=== PATIENT | male | born 1995 | race African-American/Black ===

== ENCOUNTER 2016-08-09 12:32 | Emergency (ER) | payer SELFPAY ==
[~2016-08-09] VITALS: Ht 175.3 cm; Wt 78.0 kg
[~2016-08-09 12:32] MED LIST: IBUP800T23 PO
[2016-08-09 12:35] VITALS: BP 117/83; PULSE 54; RESP 24; TEMP 97.9; O2SAT 99
[2016-08-09] MEDS ORDERED: ONDANSETRON HCL 4 MG/2 ML VIAL ONE (12:48)
[2016-08-09 13:00] VITALS: BP 136/61; PULSE 54; RESP 20; TEMP 98.9; O2SAT 97
[2016-08-09] MEDS ORDERED: SODIUM CHLOR 0.9% 1000 ML INJ 1,000 ML IV ONE (13:00)
[2016-08-09] MEDS ORDERED: ONDANSETRON HCL 4 MG/2 ML VIAL IV PUSH ONE ×2 (13:00→13:45)
[2016-08-09 13:10] LABS: AUTOMATED NEUTROPHIL # 1.7 TH/MM3 (1.8-7.7); BASOPHIL % 1.3 % (0.0-2.0); EOSINOPHIL % 1.6 % (0.0-4.0); HEMATOCRIT 43.3 % (39.0-51.0); HEMO FLAGS DIFF FINAL; LYMPH % 30.2 % (9.0-44.0); LYMPHOCYTE # 0.9 TH/MM3 (1.0-4.8); MEAN CELL VOLUME 85.6 FL (80.0-100.0); MEAN CORPUSCULAR HGB CONC 33.9 % (32.0-36.0); MONO % 9.6 % (0.0-8.0); NEUT % 57.3 % (16.0-70.0); PLATELET COUNT 146 TH/MM3 (150-450); RED BLOOD COUNT 5.06 MIL/MM3 (4.50-5.90); WHITE BLOOD COUNT 2.9 TH/MM3 (4.0-11.0)
[2016-08-09 13:25] LABS: ANION GAP 10 MEQ/L (5-15); AST (GOT) 17 U/L (15-37); BICARBONATE 25.2 MEQ/L (21.0-32.0); BLOOD UREA NITROGEN 6 MG/DL (7-18); CHLORIDE 105 MEQ/L (98-107); GLOMERULAR FILTRATION RATE 119 ML/MIN (>89); POTASSIUM 4.3 MEQ/L (3.5-5.1); SODIUM (NA) 140 MEQ/L (136-145)
[2016-08-09 13:28] LABS: ALKALINE PHOSPHATASE 73 U/L (45-117); ALT (GPT) 27 U/L (12-78); TOTAL BILIRUBIN ADULT 1.1 MG/DL (0.2-1.0)
[2016-08-09] MEDS ORDERED: DICYCLOMINE HCL 10 MG CAP PO ONE (13:45)
[2016-08-09 15:14] VITALS: BP 133/74; PULSE 65; RESP 16; O2SAT 99
--- NOTE | 2016-08-09 15:25 | PD ---
HPI Chief Complaint: GI Complaint Time Seen by Provider: 12:46 Travel History International Travel<30 days: No Contact w/Intl Traveler<30days: No Traveled to known affect area: No History of Present Illness HPI Patient is a 21-year-old male comes in complaining of nausea, vomiting, diarrhea. He says he was drinking tequila last night, but did not really think he got drunk. The last time he drank was at 1:30 this morning. He says he woke up vomiting. He thinks he may be hung over. He denies any abdominal pain. He denies fever or chills. He denies seeing any blood in his vomit or stool. PFS Past Medical History Medical History: Denies Significant Hx Cardiovascular Problems: Yes (htn) Past Surgical History Surgical History: No Previous Surgery Social History Alcohol Use: Yes (socially) Tobacco Use: No Substance Use: Yes (marijuana) Allergies-Medications (Allergen,Severity, Reaction): Coded Allergies: No Known Allergies (Unverified , 08/09/16) Reported Meds & Prescriptions Reported Meds & Active Scripts Active No Active Prescriptions or Reported Medications Review of Systems Except as stated in HPI: all other systems reviewed are Neg General / Constitutional: No: Fever, Chills HENT: No: Headaches, Lightheadedness Cardiovascular: No: Chest Pain or Discomfort Respiratory: No: Shortness of Breath Gastrointestinal: Positive: Nausea, Vomiting, Diarrhea, No: Abdominal Pain Genitourinary: No: Dysuria Skin: No Rash, No Change in Pigmentation Neurologic: No: Weakness, Dizziness Physical Exam Narrative GENERAL: Awake and alert, in no acute distress. SKIN: Warm and dry. HEAD: Atraumatic. Normocephalic. EYES: Pupils equal and round. No scleral icterus. ENT: No nasal bleeding or discharge. Mucous membranes pink and moist. NECK: Trachea midline. No JVD. CARDIOVASCULAR: Regular rate and rhythm. No murmur appreciated. RESPIRATORY: No accessory muscle use. Clear to auscultation. Breath sounds equal bilaterally. GASTROINTESTINAL: Abdomen soft, non-tender, nondistended. MUSCULOSKELETAL: No obvious deformities. No clubbing. No cyanosis. No edema. NEUROLOGICAL: Awake and alert. No obvious cranial nerve deficits. Motor grossly within normal limits. Normal speech. PSYCHIATRIC: Appropriate mood and affect; insight and judgment normal. Data Data Last Documented VS Vital Signs Date Time Temp Pulse Resp B/P Pulse Ox O2 Delivery O2 Flow Rate FiO2 08/09/16 15:14 65 16 133/74 99 Room Air 08/09/16 12:35 97.9 Orders Ondansetron Inj (Zofran Inj) (08/09/16 12:48) Complete Blood Count With Diff (08/09/16 12:53) Comprehensive Metabolic Panel (08/09/16 12:53) Sodium Chlor 0.9% 1000 Ml Inj (Ns 1000 M (08/09/16 13:00) Ondansetron Inj (Zofran Inj) (08/09/16 13:00) Ondansetron Inj (Zofran Inj) (08/09/16 13:45) Dicyclomine (Bentyl) (08/09/16 13:45) Labs Laboratory Tests Test 08/09/16 12:59 White Blood Count 2.9 TH/MM3 Red Blood Count 5.06 MIL/MM3 Hemoglobin 14.7 GM/DL Hematocrit 43.3 % Mean Corpuscular Volume 85.6 FL Mean Corpuscular Hemoglobin 29.0 PG Mean Corpuscular Hemoglobin 33.9 % Concent Red Cell Distribution Width 14.0 % Platelet Count 146 TH/MM3 Mean Platelet Volume 9.2 FL Neutrophils (%) (Auto) 57.3 % Lymphocytes (%) (Auto) 30.2 % Monocytes (%) (Auto) 9.6 % Eosinophils (%) (Auto) 1.6 % Basophils (%) (Auto) 1.3 % Neutrophils # (Auto) 1.7 TH/MM3 Lymphocytes # (Auto) 0.9 TH/MM3 Monocytes # (Auto) 0.3 TH/MM3 Eosinophils # (Auto) 0.0 TH/MM3 Basophils # (Auto) 0.0 TH/MM3 CBC Comment DIFF FINAL Differential Comment Sodium Level 140 MEQ/L Potassium Level 4.3 MEQ/L Chloride Level 105 MEQ/L Carbon Dioxide Level 25.2 MEQ/L Anion Gap 10 MEQ/L Blood Urea Nitrogen 6 MG/DL Creatinine 0.96 MG/DL Estimat Glomerular Filtration 119 ML/MIN Rate Random Glucose 99 MG/DL Calcium Level 9.1 MG/DL Total Bilirubin 1.1 MG/DL Aspartate Amino Transf 17 U/L (AST/SGOT) Alanine Aminotransferase 27 U/L (ALT/SGPT) Alkaline Phosphatase 73 U/L Total Protein 8.2 GM/DL Albumin 4.2 GM/DL MDM Medical Decision Making Medical Screen Exam Complete: Yes Emergency Medical Condition: Yes Differential Diagnosis Gastroenteritis versus dehydration versus gastritis versus hangover Narrative Course Patient is a 21-year-old male comes in complaining of nausea, vomiting, diarrhea. Exam shows no abdominal tenderness. IV established, labs sent. Labs show no acute abnormalities. Patient given IV fluids, Zofran. Planing of crampy feeling in her abdomen. Given a second dose of Zofran as well as Bentyl. He reports feeling much better after this. He is able to drink water without vomiting. He is requesting to go home. Patient advised to refrain from alcohol use. Advised to drink plenty of fluids. Advised to eat a bland diet if he is feeling hungry. Advised follow-up with his doctor. Advised to return to the ED as needed for any worsening symptoms. Diagnosis Primary Impression: Nausea & vomiting Qualified Code: R11.2 - Non-intractable vomiting with nausea, unspecified vomiting type Patient Instructions: Acute Nausea and Vomiting (ED), General Instructions Additional Instructions: Drink plenty of fluids. If you are hungry, eat a bland diet for the next day. Avoid alcohol use. Return to the ED as needed for any worsening symptoms. Follow up with your doctor. Scripts No Active Prescriptions or Reported Meds Disposition: 01 DISCHARGE HOME Condition: Stable Marta Horton MD Aug 09, 2016 15:25
== END 2016-08-09 17:03 | disposition home or self-care (01) ==
LOC: NEPA 12:32
DX: R11.2 Nausea with vomiting, unspecified (principal); R19.7 Diarrhea, unspecified; R10.9 Unspecified abdominal pain; I10 Essential (primary) hypertension
CPT/HCPCS: 80053; 85025; 96361; 96374; 96376; 99284; J2405; J7030

== ENCOUNTER 2016-11-24 00:41 | Emergency (ER) | payer SELFPAY ==
[~2016-11-24] VITALS: Ht 175.3 cm; Wt 78.0 kg
[2016-11-24 00:43] VITALS: BP 125/84; PULSE 55; RESP 16; TEMP 97.6; O2SAT 100
--- NOTE | 2016-11-24 02:23 | PD ---
HPI Chief Complaint: Complaint Time Seen by Provider: 02:07 Travel History International Travel<30 days: No Contact w/Intl Traveler<30days: No Traveled to known affect area: No History of Present Illness HPI This is a 21-year-old male presents with a finding of what feels like worms in the left testicle and he feels like he might be infected with parasites. Has no other complaints no dysuria no pain in the scrotum no abdominal pain no nausea or vomiting. He first noticed this a few days ago and has not changed since then. [facility] Past Medical History Asthma: Yes Cardiovascular Problems: Yes (htn) Diminished Hearing: No Immunizations Current: Yes Tetanus Vaccination: > 5 Years Influenza Vaccination: No Past Surgical History Surgical History: No Previous Surgery Social History Alcohol Use: Yes (socially) Tobacco Use: No Substance Use: Yes (marijuana) Allergies-Medications (Allergen,Severity, Reaction): Coded Allergies: No Known Allergies (Unverified , 11/24/16) Reported Meds & Prescriptions Reported Meds & Active Scripts Active No Active Prescriptions or Reported Medications Review of Systems Except as stated in HPI: all other systems reviewed are Neg Physical Exam Narrative GENERAL: Well-nourished, well-developed patient. SKIN: Focused skin assessment warm/dry. HEAD: Normocephalic. EYES: No scleral icterus. No injection or drainage. NECK: Supple, trachea midline. No JVD or lymphadenopathy. CARDIOVASCULAR: Regular rate and rhythm without murmurs, gallops, or rubs. RESPIRATORY: Breath sounds equal bilaterally. No accessory muscle use. GASTROINTESTINAL: Abdomen soft, non-tender, nondistended. GENITOURINARY: Patient has a varicocele which is nontender on the left side, testes normal and nontender without mass. Penis normal. No overlying erythema. MUSCULOSKELETAL: No cyanosis, or edema. BACK: Nontender without obvious deformity. No CVA tenderness. Data Data Last Documented VS Vital Signs Date Time Temp Pulse Resp B/P Pulse Ox O2 Delivery O2 Flow Rate FiO2 11/24/16 00:43 97.6 55 16 125/84 100 Room Air [facility] Medical Decision Making Medical Screen Exam Complete: Yes Emergency Medical Condition: Yes Differential Diagnosis Varicocele, hernia, testicular mass unlikely, testicular torsion highly unlikely. Narrative Course Patient roomed in emergency department, he appears well in no distress, he is uncomfortable could've varicocele of the left scrotum, he is stable for discharge. Need for follow-up with a primary care provider for a checkup. Diagnosis Primary Impression: Varicocele Referrals: [facility] Additional Instructions: [facility]up and [facility] for a general checkup. Scripts No Active Prescriptions or Reported Meds Disposition: 01 DISCHARGE HOME Condition: Stable Jerad Velasquez MD Nov 24, 2016 02:22
== END 2016-11-24 02:47 | disposition home or self-care (01) ==
LOC: NEPC 00:41
DX: I86.1 Scrotal varices (principal)
CPT/HCPCS: 99282

== ENCOUNTER 2017-03-07 08:31 | Emergency (ER) | payer SELFPAY ==
[~2017-03-07] VITALS: Ht 175.3 cm; Wt 80.0 kg
[2017-03-07 08:34] VITALS: BP 133/70; PULSE 70; RESP 24; O2SAT 100
[2017-03-07] MEDS ORDERED: SODIUM CHLOR 0.9% 1000 ML INJ 1,000 ML IV SCH (09:04)
[2017-03-07] MEDS ORDERED: ONDANSETRON HCL 4 MG/2 ML VIAL ONE (09:05)
[2017-03-07 09:09] VITALS: RESP 16; O2SAT 98
[2017-03-07] MEDS ORDERED: SODIUM CHLORIDE 0.9% FLUSH 10 ML FLUSH IV FLUSH PRN (09:15)
[2017-03-07] MEDS ORDERED: ONDANSETRON HCL 4 MG/2 ML VIAL IVP ONE (09:15)
[2017-03-07] MEDS ORDERED: SODIUM CHLOR 0.9% 1000 ML INJ 1,000 ML IV ONE (09:15)
--- NOTE | 2017-03-07 09:18 | PD ---
HPI Chief Complaint: GI Complaint Time Seen by Provider: 09:11 Travel History International Travel<30 days: No Contact w/Intl Traveler<30days: No Traveled to known affect area: No History of Present Illness HPI Patient is a 21-year-old male who presents to emergency room for evaluation of dehydration with nausea and vomiting. Patient reports that he drank heavily last night, reports that he woke this morning feeling nauseous and was vomiting. Patient denies any abdominal pain, reports that every time he drank water, he would throw up. Patient presents to emergency room with complete of dehydration. Patient with no abdominal pain at this time, patient denies any fevers or chills or trauma to the abdominal wall. Patient requests IV hydration at this time. PFS Past Medical History Asthma: Yes Cardiovascular Problems: Yes (htn) Diminished Hearing: No Immunizations Current: Yes Influenza Vaccination: Yes Past Surgical History Surgical History: No Previous Surgery Social History Alcohol Use: Yes (socially) Tobacco Use: No Substance Use: Yes (marijuana) Allergies-Medications (Allergen,Severity, Reaction): Coded Allergies: No Known Allergies (Unverified , 03/07/17) Reported Meds & Prescriptions Reported Meds & Active Scripts Active Zofran (Ondansetron HCl) 4 Mg Tab 4 Mg PO Q6HR PRN Review of Systems General / Constitutional: No: Fever Eyes: No: Visual changes HENT: No: Headaches Cardiovascular: No: Chest Pain or Discomfort Respiratory: No: Shortness of Breath Gastrointestinal: Positive: Nausea, Vomiting, No: Diarrhea, Abdominal Pain, Constipation Genitourinary: No: Dysuria Musculoskeletal: No: Pain Skin: No Rash Neurologic: No: Weakness Psychiatric: No: Depression Endocrine: No: Polydipsia Hematologic/Lymphatic: No: Easy Bruising Physical Exam Narrative GENERAL: NAD, nontoxic SKIN: Focused skin assessment warm/dry. HEAD: Atraumatic. Normocephalic. EYES: Pupils equal and round. No scleral icterus. No injection or drainage. ENT: No nasal bleeding or discharge. Mucous membranes pink and moist. NECK: Trachea midline. No JVD. CARDIOVASCULAR: Regular rate and rhythm. No murmur appreciated. RESPIRATORY: No accessory muscle use. Clear to auscultation. Breath sounds equal bilaterally. GASTROINTESTINAL: Abdomen soft, non-tender, nondistended. Hepatic and splenic margins not palpable. MUSCULOSKELETAL: No obvious deformities. No clubbing. No cyanosis. No edema. NEUROLOGICAL: Awake and alert. No obvious cranial nerve deficits. Motor grossly within normal limits. Normal speech. PSYCHIATRIC: Appropriate mood and affect; insight and judgment normal. Data Data Last Documented VS Vital Signs Date Time Temp Pulse Resp B/P (MAP) Pulse Ox O2 Delivery O2 Flow Rate FiO2 03/07/17 09:09 16 98 Room Air 03/07/17 08:34 70 Orders Orders Complete Blood Count With Diff (03/07/17 09:04) Comprehensive Metabolic Panel (03/07/17 09:04) Lipase (03/07/17 09:04) Urinalysis - C+S If Indicated (03/07/17 09:04) Iv Access Insert/Monitor (03/07/17 09:04) Ecg Monitoring (03/07/17 09:04) Oximetry (03/07/17 09:04) NPO (03/07/17 09:04) Ondansetron Inj (Zofran Inj) (03/07/17 09:15) Sodium Chlor 0.9% 1000 Ml Inj (Ns 1000 M (03/07/17 09:04) Sodium Chloride 0.9% Flush (Ns Flush) (03/07/17 09:15) Ondansetron Inj (Zofran Inj) (03/07/17 09:05) Sodium Chlor 0.9% 1000 Ml Inj (Ns 1000 M (03/07/17 09:15) Labs Laboratory Tests Test 03/07/17 09:05 White Blood Count 7.0 TH/MM3 Red Blood Count 4.83 MIL/MM3 Hemoglobin 14.2 GM/DL Hematocrit 42.1 % Mean Corpuscular Volume 87.3 FL Mean Corpuscular Hemoglobin 29.4 PG Mean Corpuscular Hemoglobin Concent 33.7 % Red Cell Distribution Width 13.8 % Platelet Count 145 TH/MM3 Mean Platelet Volume 9.0 FL Neutrophils (%) (Auto) 75.9 % Lymphocytes (%) (Auto) 16.7 % Monocytes (%) (Auto) 6.2 % Eosinophils (%) (Auto) 0.7 % Basophils (%) (Auto) 0.5 % Neutrophils # (Auto) 5.3 TH/MM3 Lymphocytes # (Auto) 1.2 TH/MM3 Monocytes # (Auto) 0.4 TH/MM3 Eosinophils # (Auto) 0.0 TH/MM3 Basophils # (Auto) 0.0 TH/MM3 CBC Comment DIFF FINAL Differential Comment Blood Urea Nitrogen 9 MG/DL Creatinine 1.05 MG/DL Random Glucose 100 MG/DL Total Protein 8.4 GM/DL Albumin 4.5 GM/DL Calcium Level 9.2 MG/DL Alkaline Phosphatase 75 U/L Aspartate Amino Transf (AST/SGOT) 17 U/L Alanine Aminotransferase (ALT/SGPT) 28 U/L Total Bilirubin 1.1 MG/DL Sodium Level 140 MEQ/L Potassium Level 4.0 MEQ/L Chloride Level 109 MEQ/L Carbon Dioxide Level 23.7 MEQ/L Anion Gap 7 MEQ/L Estimat Glomerular Filtration Rate 107 ML/MIN Lipase 64 U/L [facility] Medical Decision Making Medical Screen Exam Complete: Yes Emergency Medical Condition: Yes Interpretation(s) Vital Signs Date Time Temp Pulse Resp B/P (MAP) Pulse Ox O2 Delivery O2 Flow Rate FiO2 03/07/17 09:09 16 98 Room Air 03/07/17 09:01 20 03/07/17 08:34 70 24 133/70 (91) 100 Room Air Differential Diagnosis Differential includes a electrolyte abnormality, dehydration, alcohol abuse Narrative Course 21-year-old male who presents to emergency room with complaints of nausea and vomiting after a night of drinking last night. Patient reports that he drank heavily last night, reports that he woke up this morning feeling nauseous and began vomiting after he tried drinking water. Patient denies any abdominal pain at this time. Patient reports that he feels dehydrated and is in need of IVF. Patient is nontoxic appearing on exam, vital signs are stable. Abdomen is soft , nontender, nondistended, no peritoneal signs. Plan to obtain basic labs including LFTs, will administer IV fluids as well as antiemetics. Vital Signs Date Time Temp Pulse Resp B/P (MAP) Pulse Ox O2 Delivery O2 Flow Rate FiO2 03/07/17 09:09 16 98 Room Air 03/07/17 09:01 20 03/07/17 08:34 70 24 133/70 (91) 100 Room Air Laboratory Tests Test 03/07/17 09:05 White Blood Count 7.0 TH/MM3 (4.0-11.0) Red Blood Count 4.83 MIL/MM3 (4.50-5.90) Hemoglobin 14.2 GM/DL (13.0-17.0) Hematocrit 42.1 % (39.0-51.0) Mean Corpuscular Volume 87.3 FL (80.0-100.0) Mean Corpuscular Hemoglobin 29.4 PG (27.0-34.0) Mean Corpuscular Hemoglobin Concent 33.7 % (32.0-36.0) Red Cell Distribution Width 13.8 % (11.6-17.2) Platelet Count 145 TH/MM3 (150-450) Mean Platelet Volume 9.0 FL (7.0-11.0) Neutrophils (%) (Auto) 75.9 % (16.0-70.0) Lymphocytes (%) (Auto) 16.7 % (9.0-44.0) Monocytes (%) (Auto) 6.2 % (0.0-8.0) Eosinophils (%) (Auto) 0.7 % (0.0-4.0) Basophils (%) (Auto) 0.5 % (0.0-2.0) Neutrophils # (Auto) 5.3 TH/MM3 (1.8-7.7) Lymphocytes # (Auto) 1.2 TH/MM3 (1.0-4.8) Monocytes # (Auto) 0.4 TH/MM3 (0-0.9) Eosinophils # (Auto) 0.0 TH/MM3 (0-0.4) Basophils # (Auto) 0.0 TH/MM3 (0-0.2) CBC Comment DIFF FINAL Differential Comment Blood Urea Nitrogen 9 MG/DL (7-18) Creatinine 1.05 MG/DL (0.60-1.30) Random Glucose 100 MG/DL (74-106) Total Protein 8.4 GM/DL (6.4-8.2) Albumin 4.5 GM/DL (3.4-5.0) Calcium Level 9.2 MG/DL (8.5-10.1) Alkaline Phosphatase 75 U/L (45-117) Aspartate Amino Transf (AST/SGOT) 17 U/L (15-37) Alanine Aminotransferase (ALT/SGPT) 28 U/L (12-78) Total Bilirubin 1.1 MG/DL (0.2-1.0) Sodium Level 140 MEQ/L (136-145) Potassium Level 4.0 MEQ/L (3.5-5.1) Chloride Level 109 MEQ/L (98-107) Carbon Dioxide Level 23.7 MEQ/L (21.0-32.0) Anion Gap 7 MEQ/L (5-15) Estimat Glomerular Filtration Rate 107 ML/MIN (>89) Lipase 64 U/L (73-393) Vital Signs Date Time Temp Pulse Resp B/P (MAP) Pulse Ox O2 Delivery O2 Flow Rate FiO2 03/07/17 09:09 16 98 Room Air 03/07/17 09:01 20 03/07/17 08:34 70 24 133/70 (91) 100 Room Air Patient re-evaluated, patient feeling much better at this time. Abdomen is soft , nt/nd, no peritoneal signs. Patient is tolerated PO trial. Patient will follow up with his pcp and will return to ER as needed. Patient thankful for care Diagnosis Primary Impression: Nausea & vomiting Qualified Codes: R11.2 - Nausea with vomiting, unspecified Patient Instructions: General Instructions Additional Instructions: Please drink alcohol responsibly Return to ER as needed or if symptoms return Please drink plenty of fluids Follow up with your primary care doctor Med/Other Pt SpecificInfo: Prescription(s) given Scripts Ondansetron (Zofran) 4 Mg Tab 4 MG PO Q6HR Y for NAUSEA OR VOMITING, #20 TAB 0 Refills Prov: Tierney Ernandez DO 03/07/17 Disposition: 01 DISCHARGE HOME Condition: Stable Tierney Ernandez DO Mar 07, 2017 09:18
[2017-03-07 09:23] LABS: AUTOMATED NEUTROPHIL # 5.3 TH/MM3 (1.8-7.7); BASOPHIL % 0.5 % (0.0-2.0); EOSINOPHIL % 0.7 % (0.0-4.0); HEMATOCRIT 42.1 % (39.0-51.0); HEMO FLAGS DIFF FINAL; LYMPH % 16.7 % (9.0-44.0); LYMPHOCYTE # 1.2 TH/MM3 (1.0-4.8); MEAN CELL VOLUME 87.3 FL (80.0-100.0); MEAN CORPUSCULAR HEMOGLOBIN 29.4 PG (27.0-34.0); MEAN CORPUSCULAR HGB CONC 33.7 % (32.0-36.0); MONO % 6.2 % (0.0-8.0); NEUT % 75.9 % (16.0-70.0); PLATELET COUNT 145 TH/MM3 (150-450); RED BLOOD COUNT 4.83 MIL/MM3 (4.50-5.90); RED CELL DISTRIBUTION WIDTH 13.8 % (11.6-17.2)
[2017-03-07 09:46] LABS: ALT (GPT) 28 U/L (12-78); ANION GAP 7 MEQ/L (5-15); AST (GOT) 17 U/L (15-37); BICARBONATE 23.7 MEQ/L (21.0-32.0); BLOOD UREA NITROGEN 9 MG/DL (7-18); CHLORIDE 109 MEQ/L (98-107); SODIUM (NA) 140 MEQ/L (136-145)
[2017-03-07 10:00] VITALS: BP 112/71; PULSE 81; RESP 16; O2SAT 98
[2017-03-07 10:30] LABS: GLOMERULAR FILTRATION RATE 107 ML/MIN (>89)
[2017-03-07 10:34] LABS: ALKALINE PHOSPHATASE 75 U/L (45-117); TOTAL BILIRUBIN ADULT 1.1 MG/DL (0.2-1.0)
[2017-03-07] MEDS ORDERED: ZOFR4TAB PO (10:40)
== END 2017-03-07 11:25 | disposition home or self-care (01) ==
LOC: NEPE 08:31
DX: R11.2 Nausea with vomiting, unspecified (principal); E86.0 Dehydration; J45.909 Unspecified asthma, uncomplicated; I10 Essential (primary) hypertension
CPT/HCPCS: 80053; 83690; 85025; 96361; 96374; 99284; J2405; J7030

== ENCOUNTER 2017-03-24 05:34 | Emergency (ER) | payer SELFPAY ==
[~2017-03-24] VITALS: Ht 175.3 cm; Wt 78.0 kg
[~2017-03-24 05:34] MED LIST changes: -IBUP800T23 PO; +ZOFR4TAB PO
[2017-03-24 05:35] VITALS: BP 145/84; PULSE 50; RESP 16; TEMP 97.6; O2SAT 100
[2017-03-24] MEDS ORDERED: IBUP800T23 PO (06:14)
--- NOTE | 2017-03-24 06:14 | RADRPT ---
EXAM DATE/TIME: 03/24/2017 05:44 [place] COMPARISON: No previous studies available for comparison. INDICATIONS : Slammed 4th digit in door. Distal phalanx swollen and bruised. MEDICAL HISTORY : None. SURGICAL HISTORY : None. ENCOUNTER: Initial ACUITY: 1 day PAIN SCORE: 0/10 LOCATION: Right 4th finger FINDINGS: Examination of the fourth digit of the right hand demonstrates no evidence of fracture or dislocation . No radiopaque foreign bodies are seen. The soft tissues are intact. CONCLUSION: Unremarkable examination of the right fourth finger. Vincenzo Soriano MD on March 24, 2017 at 6:12 Board Certified Radiologist. This report was verified electronically.
[2017-03-24] MEDS ORDERED: TETANUS/DIPHTHERIA TOXOID ADULT 0.5 ML VIAL IM ONE (06:15)
--- NOTE | 2017-03-24 06:15 | PD ---
HPI Chief Complaint: Injury Time Seen by Provider: 05:45 Travel History International Travel<30 days: No Contact w/Intl Traveler<30days: No Traveled to known affect area: No History of Present Illness HPI Patient is a 21-year-old male presented to emergency evaluation of left fourth finger pain. Patient close his finger in a door at his home. He states his finger is aching and throbbing, his pain is a 5 out of 10. He is uncertain when his last tetanus vaccine was administered. Patient attempted to evacuate the subungual hematoma at home. He was unsuccessful so he presented to the emergency department. He states that he saw a [employer] video and attempted. PFSH Past Medical History Asthma: Yes Cardiovascular Problems: Yes (htn) Diminished Hearing: No Immunizations Current: Yes Tetanus Vaccination: > 5 Years Past Surgical History Surgical History: No Previous Surgery Social History Alcohol Use: Yes (socially) Tobacco Use: No Substance Use: Yes (marijuana) Allergies-Medications (Allergen,Severity, Reaction): Coded Allergies: No Known Allergies (Unverified , 03/24/17) Reported Meds & Prescriptions Reported Meds & Active Scripts Active No Active Prescriptions or Reported Medications Review of Systems Except as stated in HPI: all other systems reviewed are Neg Musculoskeletal: Positive: Pain Skin: Positive Change in nails Physical Exam Narrative GENERAL: Well-developed, well-nourished, alert gentleman. Resting comfortably in no acute distress. SKIN: Warm and dry. HEAD: Normocephalic. EYES: No scleral icterus. No injection or drainage. NECK: Supple, trachea midline. No JVD or lymphadenopathy. CARDIOVASCULAR: Regular rate and rhythm without murmurs, gallops, or rubs. RESPIRATORY: Breath sounds equal bilaterally. No accessory muscle use. GASTROINTESTINAL: Abdomen soft, non-tender, nondistended. MUSCULOSKELETAL: No cyanosis, or edema. Left fourth fingernail is ecchymotic, mild erythema noted to the distal left fourth finger. Brisk was of increasing capillary refill. Full range of motion in hand and fingers. 2+ radial pulse. BACK: Nontender without obvious deformity. No CVA tenderness. Data Data Last Documented VS Vital Signs Date Time Temp Pulse Resp B/P (MAP) Pulse Ox O2 Delivery O2 Flow Rate FiO2 03/24/17 05:35 97.6 50 16 145/84 (104) 100 Room Air Orders Orders Finger ([id number]) (03/24/17 ) MDM Medical Decision Making Medical Screen Exam Complete: Yes Emergency Medical Condition: Yes Interpretation(s) Vital Signs Date Time Temp Pulse Resp B/P (MAP) Pulse Ox O2 Delivery O2 Flow Rate FiO2 03/24/17 05:35 97.6 50 16 145/84 (104) 100 Room Air Differential Diagnosis Fracture versus contusion versus subungual hematoma versus other Narrative Course Patient presented for evaluation of left fourth finger pain after closing a door. Patient has a subungual hematoma to the right fourth fingernail. X-ray ordered to rule out fracture. Electrocautery tool was used to trephinate the left fourth finger nail bed. Hematoma was evacuated successfully. Patient tolerated procedure well. Tetanus vaccine will be updated in the emergency department today. X-ray of the right fourth finger with no fracture. Patient was encouraged to keep a Band-Aid over nail. He was advised to rest, ice, elevate finger. He was encouraged follow-up with his primary doctor. Patient can take [id number] acetaminophen or ibuprofen as needed as directed for pain. Patient was encouraged to return to emergency department for any new or worsening symptoms. Patient verbalized understanding of these instructions. Patient is stable for discharge. Diagnosis Primary Impression: Contusion, finger Qualified Codes: S60.041A - Contusion of right ring finger without damage to nail, initial encounter Additional Impression: Subungual hematoma of fingernail Qualified Codes: S60.10XA - Contusion of unspecified finger with damage to nail, initial encounter Referrals: Primary Care Physician Patient Instructions: Contusion in Adults (DC), General Instructions, Subungual Hematoma (ED) Additional Instructions: Apply ice to the affected area Ibuprofen as needed and as directed for pain Keep Band-Aid over nailbed Return to emergency department for any new or worsening symptoms Follow-up with your primary doctor Med/Other Pt SpecificInfo: Prescription(s) given, No Change to Meds Scripts Ibuprofen (Ibuprofen) 800 Mg Tab 800 MG PO Q6HR Y for PAIN, #40 TAB 0 Refills Prov: Magdalena Rodriguez 03/24/17 Disposition: 01 DISCHARGE HOME Condition: Stable Magdalena Rodriguez Mar 24, 2017 06:15
== END 2017-03-24 06:21 | disposition home or self-care (01) ==
LOC: NEPD 05:34
DX: S60.042A Contusion of left ring finger without damage to nail, initial encounter (principal); W23.1XXA Caught, crushed, jammed, or pinched between stationary objects, initial encounter; Y92.009 Unspecified place in unspecified non-institutional (private) residence as the place of occurrence of the external cause; F12.90 Cannabis use, unspecified, uncomplicated; Z23 Encounter for immunization
CPT/HCPCS: 11740; 73140; 90471; 90714; 96372

== ENCOUNTER 2017-10-11 16:21 | Emergency (ER) | payer SELFPAY ==
[~2017-10-11] VITALS: Ht 175.3 cm; Wt 75.0 kg
[~2017-10-11 16:21] MED LIST changes: +IBUP1TAB7 PO; -ZOFR4TAB PO
[2017-10-11 16:41] VITALS: BP 120/62; PULSE 93; RESP 18; TEMP 98.1; O2SAT 100
[2017-10-11 17:03] VITALS: BP 140/70; PULSE 73; RESP 20; O2SAT 100
--- NOTE | 2017-10-11 17:31 | PD ---
HPI Chief Complaint: Dizziness Time Seen by Provider: 17:12 Travel History International Travel<30 days: No Contact w/Intl Traveler<30days: No Traveled to known affect area: No History of Present Illness HPI 22-year-old male complaint numbness tingling sensation both hands and feet for the past few months. Patient states that the symptoms have been intermittent. Patient denies any fever chills. Patient denies any neck or back pain. Patient denies any injury. 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 Patient denies any drug or alcohol abuse. Patient has history of hypertension. Patient is a non- smoker. FOR[facility]LY [facility] Past Medical History Medical History: Denies Significant Hx Asthma: Yes Cardiovascular Problems: Yes (htn) Diminished Hearing: No Immunizations Current: Yes Past Surgical History Surgical History: No Previous Surgery Social History Alcohol Use: Yes (socially) Tobacco Use: No Substance Use: Yes (marijuana) Allergies-Medications (Allergen,Severity, Reaction): Coded Allergies: No Known Allergies (Unverified , 03/24/17) Reported Meds & Prescriptions Reported Meds & Active Scripts Active Ibuprofen 800 Mg Tab 800 Mg PO Q6HR PRN Review of Systems General / Constitutional: No: Fever Eyes: No: Visual changes HENT: No: Headaches Cardiovascular: No: Chest Pain or Discomfort Respiratory: No: Shortness of Breath Gastrointestinal: No: Abdominal Pain Genitourinary: No: Dysuria Musculoskeletal: No: Pain Skin: No Rash Neurologic: Positive: Sensory Disturbance, No: Weakness Psychiatric: No: Depression Endocrine: No: Polydipsia Hematologic/Lymphatic: No: Easy Bruising Physical Exam Narrative GENERAL: Well-nourished, well-developed patient. SKIN: Focused skin assessment warm/dry. HEAD: Normocephalic. EYES: No scleral icterus. No injection or drainage. NECK: Supple, trachea midline. No JVD or lymphadenopathy. CARDIOVASCULAR: Regular rate and rhythm without murmurs, gallops, or rubs. RESPIRATORY: Breath sounds equal bilaterally. No accessory muscle use. GASTROINTESTINAL: Abdomen soft, non-tender, nondistended. MUSCULOSKELETAL: No cyanosis, or edema. BACK: Nontender without obvious deformity. No CVA tenderness. Examination of the hands and feet reveals good capillary refill. Full range of motion of fingers and toes. Sensory function intact. Good pulses. No tenderness on palpation of the joints. Data Data Last Documented VS Vital Signs Date Time Temp Pulse Resp B/P (MAP) Pulse Ox O2 Delivery O2 Flow Rate FiO2 10/11/17 17:03 90 18 100 10/11/17 17:03 140/70 (93) Room Air 10/11/17 16:41 98.1 [facility] Medical Decision Making Medical Screen Exam Complete: Yes Emergency Medical Condition: Yes Differential Diagnosis Differential diagnosis including neuralgia, microcirculation insufficiency. Narrative Course 32-year-old male with intermittent tingling sensation of both hands and feet for the past few months. Diagnosis Primary Impression: Neuralgia Patient Instructions: General Instructions Additional Instructions: Tylenol ibuprofen as needed. Follow-up with personal physician. Return if worse. Med/Other Pt SpecificInfo: No Meds Exist/No RX given Disposition: 01 DISCHARGE HOME Condition: Stable Luis Cole MD Oct 11, 2017 17:31
== END 2017-10-11 19:24 | disposition home or self-care (01) ==
LOC: NEPC 16:21
DX: M79.2 Neuralgia and neuritis, unspecified (principal); I10 Essential (primary) hypertension; J45.909 Unspecified asthma, uncomplicated; F12.90 Cannabis use, unspecified, uncomplicated
CPT/HCPCS: 99282